=== PATIENT | female | born 1995 | race Caucasian/White ===

== ENCOUNTER 2017-08-15 00:12 | Emergency (ER) | payer OTHER ==
[~2017-08-15] VITALS: Ht 160 cm; Wt 79.5 kg
[2017-08-15 01:14] LABS: APPEARANCE,URINE CLOUDY (CLEAR); GLUCOSE, URINE (UA) NEGATIVE (NEGATIVE); KETONES,URINE NEGATIVE (NEGATIVE); LEUKOCYTE ESTERASE ,URINE NEGATIVE (NEGATIVE); OCCULT BLOOD,URINE NEGATIVE (NEGATIVE); PROTEIN,URINE NEGATIVE (NEGATIVE)
[2017-08-15 01:21] LABS: ADD UA MICROSCOPIC YES
[2017-08-15 01:23] LABS: RBC,URINE 0-2 /HPF (0-2); SQUAMOUS EPITHELIAL CELL,UR Many /LPF (None Seen); WBC,URINE 0-2 /HPF (0-5)
[2017-08-15] MEDS ORDERED: IBUPROFEN 600 MG TABLET PO ONE (01:30)
[2017-08-15 01:38] LABS: GLUCOSE,POINT OF CARE 90 MG/DL (70-110)
[2017-08-15 01:57] VITALS: BP 132/82
== END 2017-08-15 01:59 | disposition home or self-care (01) ==
LOC: EMS 00:13
DX: R10.12 Left upper quadrant pain (principal)
CPT/HCPCS: 82948; 82962; 87086; 99284